=== PATIENT | male | born 1995 | race Caucasian/White ===

== ENCOUNTER 2022-03-30 19:24 | Emergency (ER) | payer SELFPAY ==
[~2022-03-30] VITALS: Ht 167.6 cm; Wt 100.0 kg
[2022-03-30] MEDS ORDERED: OXYMETAZOLINE HCL NASAL SPRAY 15ML BOTHNSTRLS PRN (21:00)
[2022-03-30] MEDS: ACETAMINOPHEN 325MG TABLET PO ONE (21:30)
[2022-03-30] MEDS ORDERED: ACET-2708 MT (23:36)
[2022-03-30] MEDS ORDERED: AMOX1TAB16 MT (23:36)
[2022-03-30] MEDS ORDERED: IBUP-2029 MT (23:36)
[2022-03-30 23:45] VITALS: BP 129/78
== END 2022-03-30 23:42 | disposition home or self-care (01) ==
LOC: ER 19:24
DX: S02.2XXA Fracture of nasal bones, initial encounter for closed fracture (principal); Y08.89XA Assault by other specified means, initial encounter; Y93.89 Activity, other specified; Y92.89 Other specified places as the place of occurrence of the external cause; Y99.8 Other external cause status
CPT/HCPCS: 70486; 99284